=== PATIENT | female | born 1980 | race Caucasian/White ===

== ENCOUNTER 2017-10-18 16:27 | Emergency (ER) | payer MEDICAID, OTHER ==
--- NOTE | 2017-10-18 17:40 | EDM.PDOC ---
ED HPI GENERAL MEDICAL PROBLEM - General Chief Complaint: Skin Complaint Stated Complaint: RIGHT ARM POSS SPIDER BITE Time Seen by Provider: 10/18/17 17:40 Source of Information: Reports: Patient - History of Present Illness INITIAL COMMENTS - FREE TEXT/NARRATIVE: HISTORY AND PHYSICAL: History of present illness: [Patient presents with cellulitis on right anterior forearm 1 inch in diameter, she is an IV drug user, has multiple track sharpe. He did have an abscess on her posterior forearm that she drained on her own she has some exudates that are loculated at the opening there is no fluctuance or surrounding redness and tenderness approximately 1 inch in diameter, and wound cultures obtained at this No fever nausea vomiting chills sweats ] Review of systems: As per history of present illness and below otherwise all systems reviewed and negative. Past medical history: As per history of present illness and as reviewed below otherwise noncontributory. Surgical history: As per history of present illness and as reviewed below otherwise noncontributory. Social history: No reported history of drug or alcohol abuse. Family history: As per history of present illness and as reviewed below otherwise noncontributory. Physical exam: HEENT: Atraumatic, normocephalic, pupils reactive, negative for conjunctival pallor or scleral icterus, mucous membranes moist, throat clear, neck supple, nontender, trachea midline. Lungs: Clear to auscultation, breath sounds equal bilaterally, chest nontender. Heart: S1S2, regular, negative for clicks, rubs, or JVD. Abdomen: Soft, nondistended, nontender. Negative for masses or hepatosplenomegaly. Negative for costovertebral tenderness. Pelvis: Stable nontender. Genitourinary: Deferred. Rectal: Deferred. Extremities: Atraumatic, negative for cords or calf pain. Neurovascular unremarkable. Neuro: Awake, alert, oriented. Cranial nerves II through XII unremarkable. Cerebellum unremarkable. Motor and sensory unremarkable throughout. Exam nonfocal. Diagnostics: Culture] Therapeutics: [1 g Rocephin Bactrim double strength by mouth twice a day #20 no refill ] Impression: []Cellulitis right forearm anterior Abscess with drainage performed by the patient several days ago on the posterior forearm cellulitis surrounds post I&D Definitive disposition and diagnosis as appropriate pending reevaluation and review of above. ED ROS GENERAL - Review of Systems Review Of Systems: ROS reveals no pertinent complaints other than HPI. ED EXAM, SKIN/RASH Exam: See Below Course - Orders/Labs/Meds Orders: Active Orders 24 hr Category Date Time Status CULTURE WOUND [RM] Stat Lab 10/18/17 17:40 Ordered Departure - Departure Time of Disposition: 17:42 Disposition: Home, Self-Care 01 Condition: Good Clinical Impression: Cellulitis - Discharge Information Referrals: PCP,None [Primary Care Provider] - Forms: ED Department Discharge Additional Instructions: Medication as prescribed Return if symptoms persist or worsen Follow-up with primary care in 1 week Wound culture to follow [facility] [address] [place] [id number] The following information is given to patients seen in the emergency department who are being discharged to home. This information is to outline your options for follow-up care. We provide all patients seen in our emergency department with a follow-up referral. The need for follow-up, as well as the timing and circumstances, are variable depending upon the specifics of your emergency department visit. If you don't have a primary care physician on staff, we will provide you with a referral. We always advise you to contact your personal physician following an emergency department visit to inform them of the circumstance of the visit and for follow-up with them and/or the need for any referrals to a consulting specialist. The emergency department will also refer you to a specialist when appropriate. This referral assures that you have the opportunity for follow-up care with a specialist. All of these measure are taken in an effort to provide you with optimal care, which includes your follow-up. Under all circumstances we always encourage you to contact your private physician who remains a resource for coordinating your care. When calling for follow-up care, please make the office aware that this follow-up is from your recent emergency room visit. If for any reason you are refused follow-up, please contact the [facility] emergency department at and asked to speak to the emergency department charge nurse. - My Orders Last 24 Hours: My Active Orders 10/18/17 17:40 CULTURE WOUND [RM] Stat - Assessment/Plan Last 24 Hours: My Active Orders 10/18/17 17:40 CULTURE WOUND [RM] Stat
[2017-10-18] MEDS ORDERED: cefTRIAXone 1,000 MG in Lidocaine 1% 4 ML IM ONE (17:44)
== END 2017-10-18 18:11 | disposition home or self-care (01) ==
LOC: MW.ED 16:27
DX: L03.113 Cellulitis of right upper limb (principal)
CPT/HCPCS: 87070; 96372; 99283; J0696; 87077; 87186; 99282

== ENCOUNTER 2018-01-10 11:46 | Emergency (ER) | payer MEDICAID ==
[~2018-01-10 11:46] MED LIST: Naloxone 0.4 MG/ML Syringe IVPUSH ONE
[2018-01-10] MEDS ORDERED: Sodium Chloride 0.9% 10 ML Syringe FLUSH PRN (11:47)
[2018-01-10] MEDS ORDERED: Sodium Chloride 0.9% 2.5 ML Syringe FLUSH PRN (11:47)
--- NOTE | 2018-01-10 12:01 | EDM.PDOC ---
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 Review of systems: As per history of present illness and below otherwise all systems reviewed and negative. Past medical history: As per history of present illness and as reviewed below otherwise noncontributory. Surgical history: As per history of present illness and as reviewed below otherwise noncontributory. Social history: No reported history of drug or alcohol abuse. Family history: As per history of present illness and as reviewed below otherwise noncontributory. Physical exam: HEENT: Small areas of ecchymosis noted about her face these appear of variable age, normocephalic, pupils reactive, negative for conjunctival pallor or scleral icterus, mucous membranes moist, throat clear, c-collar applied , trachea midline. Lungs: Clear to auscultation, breath sounds equal bilaterally, chest nontender. Heart: S1S2, regular, negative for clicks, rubs, or JVD. Abdomen: Soft, nondistended, nontender. Negative for masses or hepatosplenomegaly. Negative for costovertebral tenderness. Pelvis: Stable nontender. Genitourinary: Deferred. Rectal: Deferred. Extremities: Track sharpe noted bilateral upper extremities, Neuro: Unresponsive intubated spontaneous movements Diagnostics: CBC CMP PT/INR troponin chest x-ray CT brain CT C-spine urine drug screen aspirin Tylenol level EtOH prolactin blood culture 2 hCG UA ABG Therapeutics: IV monitor mechanical ventilation Impression #1 altered mental status #2 ventilatory failure #3 probable substance abuse #4 hypoglycemic episode history of insulin dependent diabetes Definitive disposition and diagnosis as appropriate pending reevaluation and review of above. - Related Data Allergies Allergy/AdvReac Type Severity Reaction Status Date / Time clarithromycin [From Biaxin] Allergy Rash Verified 10/18/17 17:51 Home Meds: Home Meds Insulin Aspart [Novolog Flexpen] 7 units SQ ASDIRECTED 10/18/17 [History] Insulin Glarg,Human.Rec.Analog [Lantus] 50 units SQ BEDTIME 10/18/17 [History] Past Medical History - Past Health History Medical/Surgical History: Denies Medical/Surgical History Endocrine/Metabolic History: Reports: Diabetes, Type II - Infectious Disease History Infectious Disease History: Reports: Chicken Pox, Other (See Below) Other Infectious Disease History: MSSA Social & Family History - Family History Family Medical History: Noncontributory - Tobacco Use Smoking Status *Q: Unknown Ever Smoked ED ROS GENERAL - Review of Systems Review Of Systems: ROS reveals no pertinent complaints other than HPI. ED EXAM, GENERAL - Physical Exam Exam: See Below (The dictation) Course - Orders/Labs/Meds Orders: Active Orders 24 hr Category Date Time Status Cardiac Monitoring [RC] . DIRECTED Care 01/10/18 11:47 Active EKG Documentation Completion [RC] STAT Care 01/10/18 11:47 Active Pulse Oximetry [RC] ASDIRECTED Care 01/10/18 11:47 Active Cervical Spine wo Cont [CT] Stat Exams 01/10/18 11:48 Ordered Chest 1V Frontal [CR] Stat Exams 01/10/18 11:48 Ordered Head wo Cont [CT] Stat Exams 01/10/18 11:48 Ordered ACETAMINOPHEN [CHEM] Stat Lab 01/10/18 11:49 Ordered AMMONIA VENOUS [CHEM] Stat Lab 01/10/18 11:47 Ordered BLOOD GAS ARTERIAL [BG] Stat Lab 01/10/18 11:47 Ordered CARBOXYHEMOGLOBIN [BG] Stat Lab 01/10/18 11:48 Ordered CBC WITH AUTO DIFF [HEME] Stat Lab 01/10/18 11:47 Ordered COMPREHENSIVE METABOLIC PN,CMP [CHEM] Stat Lab 01/10/18 11:47 Ordered DRUG SCREEN, URINE [URCHEM] Stat Lab 01/10/18 11:48 Ordered ETHANOL BLOOD MEDICAL [CHEM] Stat Lab 01/10/18 11:47 Ordered HCG QUALITATIVE,SERUM [CHEM] Stat Lab 01/10/18 11:48 Ordered INR,PT,PROTHROMBIN TIME [COAG] Stat Lab 01/10/18 11:47 Ordered LACTATE WITH REFLEX [BG] Stat Lab 01/10/18 11:49 Ordered PROLACTIN [CHEM] Stat Lab 01/10/18 11:47 Ordered SALICYLATE [CHEM] Stat Lab 01/10/18 11:47 Ordered TROPONIN I [CHEM] Stat Lab 01/10/18 11:47 Ordered UA W/MICROSCOPIC [URIN] Stat Lab 01/10/18 11:48 Ordered Sodium Chloride 0.9% [Saline Flush] Med 01/10/18 11:47 Active 10 ml FLUSH ASDIRECTED PRN Sodium Chloride 0.9% [Saline Flush] Med 01/10/18 11:47 Active 2.5 ml FLUSH ASDIRECTED PRN Saline Lock Insert [OM.PC] Stat Oth 01/10/18 11:47 Ordered Medication Orders Sodium Chloride (Saline Flush) 10 ml FLUSH ASDIRECTED PRN PRN Reason: Keep Vein Open Sodium Chloride (Saline Flush) 2.5 ml FLUSH ASDIRECTED PRN PRN Reason: Keep Vein Open Meds: Medications Generic Name Dose Route Start Last Admin Trade Name Freq PRN Reason Stop Dose Admin Sodium Chloride 10 ml 01/10/18 11:47 Saline Flush FLUSH ASDIRECTED PRN Keep Vein Open Sodium Chloride 2.5 ml 01/10/18 11:47 Saline Flush FLUSH ASDIRECTED PRN Keep Vein Open Departure - Departure Time of Disposition: 12:01 Disposition: DC/Tfer to Acute Hospital 02 Condition: Critical Clinical Impression: Altered mental status, Respiratory arrest, Substance abuse, Hypoglycemia - Discharge Information - My Orders Last 24 Hours: My Active Orders 01/10/18 11:47 Cardiac Monitoring [RC] . DIRECTED EKG Documentation Completion [RC] STAT Pulse Oximetry [RC] ASDIRECTED AMMONIA VENOUS [CHEM] Stat BLOOD GAS ARTERIAL [BG] Stat CBC WITH AUTO DIFF [HEME] Stat COMPREHENSIVE METABOLIC PN,CMP [CHEM] Stat ETHANOL BLOOD MEDICAL [CHEM] Stat INR,PT,PROTHROMBIN TIME [COAG] Stat PROLACTIN [CHEM] Stat SALICYLATE [CHEM] Stat TROPONIN I [CHEM] Stat Sodium Chloride 0.9% [Saline Flush] 10 ml FLUSH ASDIRECTED PRN Sodium Chloride 0.9% [Saline Flush] 2.5 ml FLUSH ASDIRECTED PRN Saline Lock Insert [OM.PC] Stat 01/10/18 11:48 Cervical Spine wo Cont [CT] Stat Chest 1V Frontal [CR] Stat Head wo Cont [CT] Stat CARBOXYHEMOGLOBIN [BG] Stat DRUG SCREEN, URINE [URCHEM] Stat HCG QUALITATIVE,SERUM [CHEM] Stat UA W/MICROSCOPIC [URIN] Stat 01/10/18 11:49 ACETAMINOPHEN [CHEM] Stat LACTATE WITH REFLEX [BG] Stat - Assessment/Plan Last 24 Hours: My Active Orders 01/10/18 11:47 Cardiac Monitoring [RC] . DIRECTED EKG Documentation Completion [RC] STAT Pulse Oximetry [RC] ASDIRECTED AMMONIA VENOUS [CHEM] Stat BLOOD GAS ARTERIAL [BG] Stat CBC WITH AUTO DIFF [HEME] Stat COMPREHENSIVE METABOLIC PN,CMP [CHEM] Stat ETHANOL BLOOD MEDICAL [CHEM] Stat INR,PT,PROTHROMBIN TIME [COAG] Stat PROLACTIN [CHEM] Stat SALICYLATE [CHEM] Stat TROPONIN I [CHEM] Stat Sodium Chloride 0.9% [Saline Flush] 10 ml FLUSH ASDIRECTED PRN Sodium Chloride 0.9% [Saline Flush] 2.5 ml FLUSH ASDIRECTED PRN Saline Lock Insert [OM.PC] Stat 01/10/18 11:48 Cervical Spine wo Cont [CT] Stat Chest 1V Frontal [CR] Stat Head wo Cont [CT] Stat CARBOXYHEMOGLOBIN [BG] Stat DRUG SCREEN, URINE [URCHEM] Stat HCG QUALITATIVE,SERUM [CHEM] Stat UA W/MICROSCOPIC [URIN] Stat 01/10/18 11:49 ACETAMINOPHEN [CHEM] Stat LACTATE WITH REFLEX [BG] Stat
[2018-01-10] MEDS ORDERED: cefTRIAXone 1 GM in Premix Bag 1 BAG IV ONE (12:12)
--- NOTE | 2018-01-10 16:25 | CR ---
EXAM DATE: 01/10/18 PATIENT'S AGE: 37 Patient: PAN ESPINOZA Facility: [place], [place] Site . Site : [id number] Study: XRay Chest [id number] 12:21:41 PM Ordering Physician: Val Patel Final Report: INDICATION: PT FOUND UNRESPONSIVE TECHNIQUE: Chest 1 view COMPARISON: None FINDINGS: Cardiovascular and mediastinum: Heart size and vasculature are normal in caliber and appearance. Mediastinum is within normal limits. Lungs and pleural space: No focal consolidation. No sign of pleural effusion. No pneumothorax. Bones: No significant findings. Other: IMPRESSION: 1. no acute cardiopulmonary disease. 2. Feeding tube crossing the left hemidiaphragm looped within the gastric fundus. Dictated by Leif Villa MD @ 01/10/2018 12:38:00 PM Dictated by: Leif Villa MD @ 01/10/2018 12:38:08 (Electronic Signature) Report Signed by Proxy. LEANDRO
[2018-01-10] MEDS ORDERED: Sodium Chloride 0.9% 1,000 ML IV ONE (17:45)
== END 2018-01-10 12:35 ==
LOC: MW.ED 11:46
DX: E11.649 Type 2 diabetes mellitus with hypoglycemia without coma (principal); R09.2 Respiratory arrest; F19.10 Other psychoactive substance abuse, uncomplicated; Z88.1 Allergy status to other antibiotic agents; Z79.4 Long term (current) use of insulin
CPT/HCPCS: 36415; 36600; 43753; 71045; 80305; 81001; 82375; 82803; 83605; 93005; 94002; 96361; 96374; 99291; 99292; A9270; J0696; J7040; 99285

== ENCOUNTER 2018-01-27 04:42 | Observation (INO) | payer MEDICAID ==
[2018-01-27] MEDS ORDERED: Aspirin 81 MG Tab.Chew PO ONE (04:51)
[2018-01-27] MEDS ORDERED: Sodium Chloride 0.9% 2.5 ML Syringe FLUSH PRN (04:51)
[2018-01-27] MEDS ORDERED: Sodium Chloride 0.9% 10 ML Syringe FLUSH PRN (04:51)
[2018-01-27] MEDS ORDERED: Sodium Chloride 0.9% 1,000 ML IV SCH (05:00)
--- NOTE | 2018-01-27 05:21 | EDM.PDOC ---
ED HPI GENERAL MEDICAL PROBLEM - General Chief Complaint: Chest Pain Stated Complaint: CHEST PAINS Time Seen by Provider: 01/27/18 04:43 - History of Present Illness INITIAL COMMENTS - FREE TEXT/NARRATIVE: HISTORY AND PHYSICAL: History of present illness: Patient 37-year-old female presents concerned chest pain this is vaguely described without associated shortness breath palpitations nausea vomiting patient history his history of methamphetamine use she denies current. Patient is requesting pain medication on arrival Review of systems: As per history of present illness and below otherwise all systems reviewed and negative. Past medical history: As per history of present illness and as reviewed below otherwise noncontributory. Surgical history: As per history of present illness and as reviewed below otherwise noncontributory. Social history: No reported history of drug or alcohol abuse. Family history: As per history of present illness and as reviewed below otherwise noncontributory. Physical exam: HEENT: Atraumatic, normocephalic, pupils reactive, negative for conjunctival pallor or scleral icterus, mucous membranes moist, throat clear, neck supple, nontender, trachea midline. Lungs: Clear to auscultation, breath sounds equal bilaterally, chest nontender. Heart: S1S2, regular, negative for clicks, rubs, or JVD. Abdomen: Soft, nondistended, nontender. Negative for masses or hepatosplenomegaly. Negative for costovertebral tenderness. Pelvis: Stable nontender. Genitourinary: Deferred. Rectal: Deferred. Extremities: Atraumatic, negative for cords or calf pain. Neurovascular unremarkable. Neuro: Awake, alert, anxious, oriented. Cranial nerves II through XII unremarkable. Cerebellum unremarkable. Motor and sensory unremarkable throughout. Exam nonfocal. Diagnostics: CBC CMP troponin PT/INR chest x-ray EKG UDS Therapeutics: IV O2 monitor aspirin 324 mg by mouth Impression: 1 atypical chest pain #2 uncontrolled diabetes #3 history of substance abuse Definitive disposition and diagnosis as appropriate pending reevaluation and review of above. right side chest Pain Score (Numeric/FACES): 10 - Related Data Allergies Allergy/AdvReac Type Severity Reaction Status Date / Time clarithromycin [From Biaxin] Allergy Rash Verified 01/27/18 04:51 Home Meds: Home Meds Insulin Aspart [Novolog Flexpen] 7 units SQ ASDIRECTED 10/18/17 [History] Insulin Glarg,Human.Rec.Analog [Lantus] 50 units SQ BEDTIME 10/18/17 [History] Past Medical History - Past Health History Medical/Surgical History: Denies Medical/Surgical History HEENT History: Reports: None Cardiovascular History: Reports: Other (See Below) Other Cardiovascular History: CHF Respiratory History: Reports: None Gastrointestinal History: Reports: None Genitourinary History: Reports: None 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 Musculoskeletal History: Reports: None Neurological History: Reports: None Psychiatric History: Reports: None Endocrine/Metabolic History: Reports: Diabetes, Type II - Infectious Disease History Infectious Disease History: Reports: Chicken Pox Other Infectious Disease History: MSSA - Past Surgical History Female Surgical History: Reports: None Social & Family History - Family History Family Medical History: Noncontributory - Tobacco Use Smoking Status *Q: Current Every Day Smoker Years of Tobacco use: 16 Packs/Tins Daily: 1 - Recreational Drug Use Recreational Drug Use: No ED ROS GENERAL - Review of Systems Review Of Systems: ROS reveals no pertinent complaints other than HPI. ED EXAM, GENERAL - Physical Exam Exam: See Below (See dictation) Course - Vital Signs Last Recorded V/S: Last Vital Signs Temp 37.1 C 01/27/18 04:43 Pulse 97 01/27/18 05:48 Resp 18 01/27/18 05:48 BP 116/68 01/27/18 05:48 Pulse Ox 97 01/27/18 05:48 - Orders/Labs/Meds Orders: Active Orders 24 hr Category Date Time Status Cardiac Monitoring [RC] . DIRECTED Care 01/27/18 04:51 Active EKG Documentation Completion [RC] STAT Care 01/27/18 04:50 Active Chest 1V Frontal [CR] Stat Exams 01/27/18 04:51 Taken ABG [BLOOD GAS ARTERIAL] [BG] Stat Lab 01/27/18 06:02 Ordered DRUG SCREEN, URINE [URCHEM] Stat Lab 01/27/18 04:51 Ordered UA W/MICROSCOPIC [URIN] Stat Lab 01/27/18 04:51 Ordered Sodium Chloride 0.9% [Normal Saline] 1,000 ml Med 01/27/18 05:00 Active IV STAT Sodium Chloride 0.9% [Saline Flush] Med 01/27/18 04:51 Active 10 ml FLUSH ASDIRECTED PRN Sodium Chloride 0.9% [Saline Flush] Med 01/27/18 04:51 Active 2.5 ml FLUSH ASDIRECTED PRN Saline Lock Insert [OM.PC] Stat Oth 01/27/18 04:51 Ordered Medication Orders Sodium Chloride (Normal Saline) 1,000 mls @ 125 mls/hr IV STAT SIGIFREDO Last Infusion: 01/27/18 06:03 Dose: 999 mls/hr Admin: 01/27/18 05:01 Dose: 125 mls/hr Sodium Chloride (Saline Flush) 10 ml FLUSH ASDIRECTED PRN PRN Reason: Keep Vein Open Sodium Chloride (Saline Flush) 2.5 ml FLUSH ASDIRECTED PRN PRN Reason: Keep Vein Open Labs: Laboratory Tests 01/27/18 01/27/18 01/27/18 Range/Units 05:12 05:12 05:12 WBC 10.13 (4.0-11.0) K/uL RBC 3.93 L (4.30-5.90) M/uL Hgb 12.1 (12.0-16.0) g/dL Hct 37.5 (36.0-46.0) % MCV 95.4 (80.0-98.0) fL MCH 30.8 (27.0-32.0) pg MCHC 32.3 (31.0-37.0) g/dL RDW Std Deviation 44.0 (28.0-62.0) fl RDW Coeff of Leon 13 (11.0-15.0) % Plt Count 321 (150-400) K/uL MPV 10.30 (7.40-12.00) fL Neut % (Auto) 70.2 (48.0-80.0) % Lymph % (Auto) 20.1 (16.0-40.0) % Garden % (Auto) 8.9 (0.0-15.0) % Eos % (Auto) 0.6 (0.0-7.0) % Baso % (Auto) 0.2 (0.0-1.5) % Neut # (Auto) 7.1 H (1.4-5.7) K/uL Lymph # (Auto) 2.0 (0.6-2.4) K/uL Garden # (Auto) 0.9 H (0.0-0.8) K/uL Eos # (Auto) 0.1 (0.0-0.7) K/uL Baso # (Auto) 0.0 (0.0-0.1) K/uL Nucleated RBC % 0.0 /100WBC Nucleated RBCs # 0 K/uL INR 0.97 Sodium 128 L (136-145) mmol/L Potassium 4.3 (3.5-5.1) mmol/L Chloride 94 L (98-107) mmol/L Carbon Dioxide 21.2 (21.0-32.0) mmol/L BUN 14 (7.0-18.0) mg/dL Creatinine 1.0 (0.6-1.0) mg/dL Est Cr Clr Drug Dosing 71.41 mL/min Estimated GFR (MDRD) > 60.0 ml/min Glucose 726 H* (74-106) mg/dL Calcium 8.7 (8.5-10.1) mg/dL Total Bilirubin 0.4 (0.2-1.0) mg/dL AST 74 H (15-37) IU/L ALT 67 H (14-63) IU/L Alkaline Phosphatase 139 H (46-116) U/L Troponin I < 0.050 (0.000-0.056) ng/mL Total Protein 7.2 (6.4-8.2) g/dL Albumin 3.4 (3.4-5.0) g/dL Globulin 3.8 H (2.0-3.5) g/dL Albumin/Globulin Ratio 0.9 L (1.3-2.8) Meds: Medications Generic Name Dose Route Start Last Admin Trade Name Freq PRN Reason Stop Dose Admin Sodium Chloride 1,000 mls @ 125 mls/hr 01/27/18 05:00 01/27/18 06:03 Normal Saline IV 999 mls/hr STAT SIGIFREDO Infusion Sodium Chloride 10 ml 01/27/18 04:51 Saline Flush FLUSH ASDIRECTED PRN Keep Vein Open Sodium Chloride 2.5 ml 01/27/18 04:51 Saline Flush FLUSH ASDIRECTED PRN Keep Vein Open Discontinued Medications Generic Name Dose Route Start Last Admin Trade Name Freq PRN Reason Stop Dose Admin Aspirin 324 mg 01/27/18 04:51 01/27/18 05:02 Aspirin PO 01/27/18 04:52 324 mg ONETIME ONE Administration Insulin Human Regular 100 unit 100 mls @ 6 mls/hr 01/27/18 06:15 / Sodium Chloride IV TITRATE SIGIFREDO Protocol 6 UNIT/HR Insulin Human Regular 20 unit 01/27/18 06:14 Novolin R SUBCUT 01/27/18 06:15 NOW STA Protocol Insulin Human Regular 10 unit 01/27/18 06:15 Novolin R IVPUSH 01/27/18 06:16 ONETIME ONE Protocol Departure - Departure Time of Disposition: 05:20 Disposition: Refer to Observation Condition: Good Clinical Impression: Atypical chest pain, Uncontrolled diabetes mellitus - Discharge Information Referrals: PCP,None [Primary Care Provider] - Forms: ED Department Discharge Additional Instructions: The following information is given to patients seen in the emergency department who are being discharged to home. This information is to outline your options for follow-up care. We provide all patients seen in our emergency department with a follow-up referral. The need for follow-up, as well as the timing and circumstances, are variable depending upon the specifics of your emergency department visit. If you don't have a primary care physician on staff, we will provide you with a referral. We always advise you to contact your personal physician following an emergency department visit to inform them of the circumstance of the visit and for follow-up with them and/or the need for any referrals to a consulting specialist. The emergency department will also refer you to a specialist when appropriate. This referral assures that you have the opportunity for followup care with a specialist. All of these measure are taken in an effort to provide you with optimal care, which includes your followup. Under all circumstances we always encourage you to contact your private physician who remains a resource for coordinating your care. When calling for followup care, please make the office aware that this follow-up is from your recent emergency room visit. If for any reason you are refused follow-up, please contact the [facility] emergency department at and asked to speak to the emergency department charge nurse. [facility] [address] [place] [phone] Follow-up primary medical doctor return as needed as discussed - My Orders Last 24 Hours: My Active Orders 01/27/18 04:50 EKG Documentation Completion [RC] STAT 01/27/18 04:51 Cardiac Monitoring [RC] . DIRECTED Chest 1V Frontal [CR] Stat DRUG SCREEN, URINE [URCHEM] Stat UA W/MICROSCOPIC [URIN] Stat Sodium Chloride 0.9% [Saline Flush] 10 ml FLUSH ASDIRECTED PRN Sodium Chloride 0.9% [Saline Flush] 2.5 ml FLUSH ASDIRECTED PRN Saline Lock Insert [OM.PC] Stat 01/27/18 05:00 Sodium Chloride 0.9% [Normal Saline] 1,000 ml IV STAT 01/27/18 06:02 ABG [BLOOD GAS ARTERIAL] [BG] Stat - Assessment/Plan Last 24 Hours: My Active Orders 01/27/18 04:50 EKG Documentation Completion [RC] STAT 01/27/18 04:51 Cardiac Monitoring [RC] . DIRECTED Chest 1V Frontal [CR] Stat DRUG SCREEN, URINE [URCHEM] Stat UA W/MICROSCOPIC [URIN] Stat Sodium Chloride 0.9% [Saline Flush] 10 ml FLUSH ASDIRECTED PRN Sodium Chloride 0.9% [Saline Flush] 2.5 ml FLUSH ASDIRECTED PRN Saline Lock Insert [OM.PC] Stat 01/27/18 05:00 Sodium Chloride 0.9% [Normal Saline] 1,000 ml IV STAT 01/27/18 06:02 ABG [BLOOD GAS ARTERIAL] [BG] Stat
[2018-01-27 05:40] LABS: CHLORIDE,CL 94 mmol/L (98-107); SODIUM,NA 128 mmol/L (136-145)
[2018-01-27] MEDS ORDERED: Insulin Regular, Human 100 Units/ML 10 ML Vial SUBCUT STA (06:14)
[2018-01-27] MEDS ORDERED: Insulin Regular, Human 100 Units/ML 10 ML Vial IVPUSH ONE (06:15)
[2018-01-27] MEDS ORDERED: Ondansetron 4 MG/2 ML SDV IVPUSH PRN (08:10)
[2018-01-27] MEDS ORDERED: Promethazine 25 MG/ML SDV IM PRN (08:10)
[2018-01-27] MEDS: Morphine 2 MG/ML Syringe IVPUSH PRN ×4 (08:26→20:58)
--- NOTE | 2018-01-27 08:36 | PCM.HP ---
H&P History of Present Illness - General Date of Service: 01/27/18 Admit Problem/Dx: Admission Diagnosis/Problem Admission Diagnosis/Problem Atypical chest pain Source of Information: Patient History Limitations: Reports: No Limitations - History of Present Illness Initial Comments - Free Text/Narative: 37F with a past hx of T1DM presented to the ER earlier this morning with a CC of generalized chest/back/abdominal pain that began last night. She states that it began abruptly, and has been progressively getting worse. It is more so on the right side. No relieving factors She states that she has been taking her insulin regularly. She does have a history of methamphetamine use but denies recent use. Denies any recent alcohol intake. Currently, shes started to feel like the pain is all over. Also complains of nonbloody watery diarrhea. She denies any nausea, vomiting, fever, chills, numbness or tingling ER Course: CBC CMP - Na 128, glucose 726, K 4.3, AST 74 ALT 67 Troponin negative EKG nsr ABG: pH 7.4, CO2 28, HCO3 21, O2 106 CXR unremarkable IV 1L NS bolus x1, started on NS 125mL/h 325mg PO aspirin 30 units regular insulin Recheck bedside glucose now on the floor is 270 right side chest Pain Score (Numeric/FACES): 10 - Related Data Allergies/Adverse Reactions: Allergies Allergy/AdvReac Type Severity Reaction Status Date / Time clarithromycin [From Biaxin] Allergy Rash Verified 01/27/18 04:51 Home Medications: Home Meds Insulin Aspart [Novolog Flexpen] 7 units SQ ASDIRECTED 10/18/17 [History] Insulin Glarg,Human.Rec.Analog [Lantus] 50 units SQ BEDTIME 10/18/17 [History] Past Medical History - Past Health History Medical/Surgical History: Denies Medical/Surgical History HEENT History: Reports: None Cardiovascular History: Reports: Other (See Below) Other Cardiovascular History: CHF Respiratory History: Reports: None Gastrointestinal History: Reports: None Genitourinary History: Reports: None WHOLESALE AGRONOMIST History: Reports: None Musculoskeletal History: Reports: None Neurological History: Reports: None Psychiatric History: Reports: None Endocrine/Metabolic History: Reports: Diabetes, Type I - Infectious Disease History Infectious Disease History: Reports: Chicken Pox Other Infectious Disease History: MSSA - Past Surgical History Female Surgical History: Reports: None Social & Family History - Family History Family Medical History: Noncontributory - Tobacco Use Smoking Status *Q: Current Every Day Smoker Years of Tobacco use: 16 Packs/Tins Daily: 0.5 - Caffeine Use Caffeine Use: Reports: None - Recreational Drug Use Recreational Drug Use: No H&P Review of Systems - Review of Systems: Review Of Systems: See Below General: Reports: Other (see hpi) HEENT: Reports: No Symptoms Pulmonary: Reports: Cough (nonproductive) Cardiovascular: Reports: Chest Pain Gastrointestinal: Reports: Abdominal Pain Genitourinary: Reports: No Symptoms Musculoskeletal: Reports: Back Pain Skin: Reports: No Symptoms Psychiatric: Reports: No Symptoms Neurological: Reports: No Symptoms Hematologic/Lymphatic: Reports: No Symptoms Immunologic: Reports: No Symptoms Exam - Exam Exam: See Below - Vital Signs Vital Signs: Last Vital Signs Temp 37.1 C 01/27/18 07:43 Pulse 95 01/27/18 07:43 Resp 20 01/27/18 07:43 BP 137/85 01/27/18 07:43 Pulse Ox 99 01/27/18 07:43 Weight: 75.795 kg - Exam General: Alert, Oriented, Cooperative HEENT: PERRLA, Hearing Intact, Mucosa Moist & [place], Nares Patent, Normal Nasal Septum, Posterior Pharynx Clear, Conjunctiva Clear, EOMI, EACs Clear, TMs Clear Neck: Supple, Trachea Midline, 2 Lungs: Clear to Auscultation, Normal Respiratory Effort Cardiovascular: Regular Rate, Regular Rhythm GI/Abdominal Exam: Other (tender to mild palpation in all quadrants, abdomen is soft with no masses, ascites) Back Exam: Normal Inspection, Full Range of Motion. No: CVA Tenderness (L), CVA Tenderness (R) Extremities: Normal Inspection, Normal Range of Motion, Non-Tender, No Pedal Edema, Normal Capillary Refill Peripheral Pulses: 2+: Posterior Tibial (L), Posterior Tibial (R), Dorsalis Pedis (L), Dorsalis Pedis (R) Skin: Warm, Dry, Intact Neuro Extensive - Mental Status: Alert, Oriented x3, Normal Mood/Affect, Normal Cognition Neuro Extensive - Motor, Sensory, Reflexes: CN II-XII Intact, Normal Reflexes Psychiatric: Alert, Normal Mood, Anxious - Patient Data Lab Results Last 24 hrs: Laboratory Results - last 24 hr 06/08/18 06/08/18 06/08/18 Range/Units 05:12 05:12 05:12 WBC 10.13 (4.0-11.0) K/uL RBC 3.93 L (4.30-5.90) M/uL Hgb 12.1 (12.0-16.0) g/dL Hct 37.5 (36.0-46.0) % MCV 95.4 (80.0-98.0) fL MCH 30.8 (27.0-32.0) pg MCHC 32.3 (31.0-37.0) g/dL RDW Std Deviation 44.0 (28.0-62.0) fl RDW Coeff of Loen 13 (11.0-15.0) % Plt Count 321 (150-400) K/uL MPV 10.30 (7.40-12.00) fL Neut % (Auto) 70.2 (48.0-80.0) % Lymph % (Auto) 20.1 (16.0-40.0) % Slope % (Auto) 8.9 (0.0-15.0) % Eos % (Auto) 0.6 (0.0-7.0) % Baso % (Auto) 0.2 (0.0-1.5) % Neut # (Auto) 7.1 H (1.4-5.7) K/uL Lymph # (Auto) 2.0 (0.6-2.4) K/uL Slope # (Auto) 0.9 H (0.0-0.8) K/uL Eos # (Auto) 0.1 (0.0-0.7) K/uL Baso # (Auto) 0.0 (0.0-0.1) K/uL Nucleated RBC % 0.0 /100WBC Nucleated RBCs # 0 K/uL INR 0.97 ABG pH (7.35-7.45) ABG pCO2 (35-45) mmHG ABG pO2 (75-100) mmHG ABG HCO3 (22-26) mEq/L ABG Total CO2 ABG Base Excess (-2.0-2.0) Sodium 128 L (136-145) mmol/L Potassium 4.3 (3.5-5.1) mmol/L Chloride 94 L (98-107) mmol/L Carbon Dioxide 21.2 (21.0-32.0) mmol/L BUN 14 (7.0-18.0) mg/dL Creatinine 1.0 (0.6-1.0) mg/dL Est Cr Clr Drug Dosing 71.41 mL/min Estimated GFR (MDRD) > 60.0 ml/min Glucose 726 H* (74-106) mg/dL POC Glucose (60-110) mg/dL Calcium 8.7 (8.5-10.1) mg/dL Total Bilirubin 0.4 (0.2-1.0) mg/dL AST 74 H (15-37) IU/L ALT 67 H (14-63) IU/L Alkaline Phosphatase 139 H (46-116) U/L Troponin I < 0.050 (0.000-0.056) ng/mL Total Protein 7.2 (6.4-8.2) g/dL Albumin 3.4 (3.4-5.0) g/dL Globulin 3.8 H (2.0-3.5) g/dL Albumin/Globulin Ratio 0.9 L (1.3-2.8) 01/27/18 01/27/18 Range/Units 06:15 07:24 WBC (4.0-11.0) K/uL RBC (4.30-5.90) M/uL Hgb (12.0-16.0) g/dL Hct (36.0-46.0) % MCV (80.0-98.0) fL MCH (27.0-32.0) pg MCHC (31.0-37.0) g/dL RDW Std Deviation (28.0-62.0) fl RDW Coeff of Leon (11.0-15.0) % Plt Count (150-400) K/uL MPV (7.40-12.00) fL Neut % (Auto) (48.0-80.0) % Lymph % (Auto) (16.0-40.0) % Slope % (Auto) (0.0-15.0) % Eos % (Auto) (0.0-7.0) % Baso % (Auto) (0.0-1.5) % Neut # (Auto) (1.4-5.7) K/uL Lymph # (Auto) (0.6-2.4) K/uL Slope # (Auto) (0.0-0.8) K/uL Eos # (Auto) (0.0-0.7) K/uL Baso # (Auto) (0.0-0.1) K/uL Nucleated RBC % /100WBC Nucleated RBCs # K/uL INR ABG pH 7.475 H (7.35-7.45) ABG pCO2 28 L (35-45) mmHG ABG pO2 106 H (75-100) mmHG ABG HCO3 21 L (22-26) mEq/L ABG Total CO2 18.6 ABG Base Excess -1.9 (-2.0-2.0) Sodium (136-145) mmol/L Potassium (3.5-5.1) mmol/L Chloride (98-107) mmol/L Carbon Dioxide (21.0-32.0) mmol/L BUN (7.0-18.0) mg/dL Creatinine (0.6-1.0) mg/dL Est Cr Clr Drug Dosing mL/min Estimated GFR (MDRD) ml/min Glucose (74-106) mg/dL POC Glucose > 500 H (60-110) mg/dL Calcium (8.5-10.1) mg/dL Total Bilirubin (0.2-1.0) mg/dL AST (15-37) IU/L ALT (14-63) IU/L Alkaline Phosphatase (46-116) U/L Troponin I (0.000-0.056) ng/mL Total Protein (6.4-8.2) g/dL Albumin (3.4-5.0) g/dL Globulin (2.0-3.5) g/dL Albumin/Globulin Ratio (1.3-2.8) Result Diagrams: 01/27/18 05:12 01/27/18 05:12 Problem List Initiated/Reviewed/Updated: Yes Orders Last 24hrs: Active Orders 24 hr Category Date Time Status Patient Status [ADT] Stat ADT 01/27/18 06:20 Active Blood Glucose Check, Bedside [RC] ONETIME Care 01/27/18 08:13 Active Cardiac Monitoring [RC] . DIRECTED Care 01/27/18 04:51 Active EKG Documentation Completion [RC] STAT Care 01/27/18 04:50 Active Oxygen Therapy [RC] PRN Care 01/27/18 08:10 Active Telemetry Monitoring [Cardiac Monitoring] [RC] . Care 01/27/18 08:27 Ordered DIRECTED Up ad Milana [RC] ASDIRECTED Care 01/27/18 08:10 Active VTE/DVT Education [RC] PER UNIT ROUTINE Care 01/27/18 08:10 Active Vital Signs [RC] Q4H Care 01/27/18 08:10 Active Consult to Diabetic Nurse Specialist [CONS] Routine Cons 01/27/18 08:10 Active Nothing per Oral Now Diet [DIET] Diet 01/27/18 Lunch Active Chest 1V Frontal [CR] Stat Exams 01/27/18 04:51 Taken BASIC METABOLIC PANEL,BMP [CHEM] Routine Lab 01/27/18 12:00 Ordered DRUG SCREEN, URINE [URCHEM] Stat Lab 01/27/18 04:51 Ordered UA W/MICROSCOPIC [URIN] Stat Lab 01/27/18 04:51 Ordered Insulin Aspart [NovoLOG] Med 01/27/18 11:30 Active See Protocol SUBCUT TIDAC Morphine Med 01/27/18 08:10 Active 2 mg IVPUSH Q4H PRN Ondansetron [Zofran] Med 01/27/18 08:10 Active 4 mg IVPUSH Q4H PRN Promethazine [Phenergan] Med 01/27/18 08:10 Active 12.5 mg IM Q4H PRN Sodium Chloride 0.9% [Normal Saline] 1,000 ml Med 01/27/18 05:00 Active IV STAT Sodium Chloride 0.9% [Saline Flush] Med 01/27/18 04:51 Active 10 ml FLUSH ASDIRECTED PRN Sodium Chloride 0.9% [Saline Flush] Med 01/27/18 04:51 Active 2.5 ml FLUSH ASDIRECTED PRN Saline Lock Insert [OM.PC] Stat Oth 01/27/18 04:51 Ordered Sequential Compression Device [OM.PC] Per Unit Routine Oth 01/27/18 08:11 Ordered Resuscitation Status Routine Resus Stat 01/27/18 08:10 Ordered Medication Orders Sodium Chloride (Normal Saline) 1,000 mls @ 175 mls/hr IV STAT SIGIFREDO Last Infusion: 01/27/18 06:03 Dose: 999 mls/hr Admin: 01/27/18 05:01 Dose: 125 mls/hr Insulin Aspart (Novolog) 0 unit SUBCUT TIDAC SIGIFREDO; Protocol Morphine Sulfate (Morphine) 2 mg IVPUSH Q4H PRN PRN Reason: Pain (severe 7-10) Stop: 01/28/18 08:11 Ondansetron HCl (Zofran) 4 mg IVPUSH Q4H PRN PRN Reason: Nausea Promethazine HCl (Phenergan) 12.5 mg IM Q4H PRN PRN Reason: Nausea/Vomiting Sodium Chloride (Saline Flush) 10 ml FLUSH ASDIRECTED PRN PRN Reason: Keep Vein Open Sodium Chloride (Saline Flush) 2.5 ml FLUSH ASDIRECTED PRN PRN Reason: Keep Vein Open Assessment/Plan Comment:: Assessment: #1. Hyperglycemia #2. Pseudohyponatremia #3. Generalized pain involving the chest, abdomen, back #4. Watery diarrhea #5. History of T1DM Plan: #1. Admit to the floor for observation. Full code. Cardiac telemetry. Vital signs per floor routine #2. Her corrected sodium is 134 given her significant hyperglycemia. #3. Bedside glucose recheck indicates a glucose of 270. Therefore, will initiate medium dose sliding scale insulin, will not be needing an insulin drip #4. Repeat BMP at noon #5. Increase IVNS to 175mL/h #6. Morphine 2mg IV q4h PRN, pain. She does have a history of methamphetamine use. Drug screen is pending #7. F/u on UA once available #8. Stool culture for diarrhea complaint #9. Zofran 4mg IV q4h PRN, nausea. promethazine 12.5mg IV q4h PRN for nausea #10. Consult diabetic education #11. Anion gap is 6. She is awake, alert, and oriented. #12. D-dimer #13. CIWA protocol with PRN Ativan as I suspect possible alcohol use given her history #14. q6h blood glucose check #15. amylase/lipase #16. GI Cocktail
[2018-01-27] MEDS: Sodium Chloride 0.9% 1,000 ML IV SCH ×3 (09:26→18:29)
[2018-01-27] MEDS ORDERED: Alum Hydrox/Mag Hydrox/Simeth 15 ML, Metoclopramide 5 MG, Lidocaine 2% 5 ML PO ONE ×3 (09:27)
[2018-01-27] MEDS ORDERED: LORazepam 2 MG/ML SDV IVPUSH PRN (09:28)
[2018-01-27] MEDS ORDERED: Sodium Chloride 0.9% 1,000 ML IV ONE (09:29)
[2018-01-27] MEDS: Pantoprazole 40 MG Vial IVPUSH SCH (10:13)
[2018-01-27] MEDS: Thiamine 200 MG/2 ML MDV IV SCH (10:13)
[2018-01-27] MEDS: Folic Acid 50 MG/10 ML MDV SUBCUT SCH (10:14)
[2018-01-27] MEDS ORDERED: 50% Dextrose in Water 50 ML Syringe IVPUSH ONE (11:11)
[2018-01-27] MEDS ORDERED: Insulin Aspart 100 Units/ML 3 ML Pen SUBCUT SCH (11:30)
--- NOTE | 2018-01-27 11:43 | PCM.SN ---
- Free Text/Narrative Note: Patient was found to be unresponsive, bedside glucose 25, an amp of d50 was given. Recheck glucose 138. Patient is now responsive, complaining of ongoing pain as prior.
[2018-01-27] MEDS: Insulin Aspart 100 Units/ML 3 ML Pen SUBCUT SCH ×2 (12:45→18:01)
[2018-01-27 12:55] LABS: CHLORIDE,CL 105 mmol/L (98-107); SODIUM,NA 139 mmol/L (136-145)
--- NOTE | 2018-01-27 13:01 | PCM.SN ---
- Free Text/Narrative Note: Anesthesia Note: Called for difficult IV placement. Initial attempt with 20 Ga to R upper arm - vein blew after threading catheter; 2nd attempt with 22 Ga again to R UA and this time threaded easily, but blew upon flushing; 3rd attempt 20 GA to R deep brachial - again blew upon flushing. Finally superficial vein to L outer AC cannulated with 24 ga IV and flushes well. Plan to get pt hydrated and attempt and larger bore IV after hydration. Pt moaning and screaming in pain even when no painful event occurring. Pt does have multiple scars all over her arms consistent with IV drug abuse. Pt verbalizes that she "had to have IVs in her neck" in the past.
[2018-01-27] MEDS: cefTRIAXone 1 GM in Premix Bag 1 BAG IV SCH (13:07)
--- NOTE | 2018-01-27 15:20 | CR ---
EXAM DATE: 01/27/18 PATIENT'S AGE: 37 Patient: PAN ESPINOZA Facility: [place], [place] Site . Site : 1980 Study: XRay Chest [id number]/8/2018 5:28:14 AM Ordering Physician: Val Patel Final Report: Indication: Chest pain Technique: Chest 1 view Comparison: 01/10/2018. Findings/Impression: Cardiovascular and mediastinum: Stable cardiomediastinal silhouette. Lungs and pleural space: Expiratory study. Interval resolution of the previously seen left basilar pleural and parenchymal disease. No new consolidation or pleural effusions. Bones and soft tissues: A small density in the left axilla, not seen on the prior, possibly overlying the patient. Dictated by Franklyn Jaquez MD @ 01/27/2018 6:24:40 AM Dictated by: Franklyn Jaquez MD @ 01/27/2018 06:24:46 (Electronic Signature) Report Signed by Proxy. LEANDRO
[2018-01-28] MEDS: Morphine 2 MG/ML Syringe IVPUSH PRN (04:31)
[2018-01-28] MEDS: Insulin Aspart 100 Units/ML 3 ML Pen SUBCUT SCH ×2 (07:01→12:10)
[2018-01-28] MEDS ORDERED: Insulin Aspart 100 Units/ML 3 ML Pen SUBCUT ONE (07:01)
[2018-01-28] MEDS ORDERED: Morphine 2 MG/ML Syringe IVPUSH ONE (09:06)
[2018-01-28] MEDS: Folic Acid 50 MG/10 ML MDV SUBCUT SCH (09:21)
[2018-01-28] MEDS: Pantoprazole 40 MG Vial IVPUSH SCH (09:22)
[2018-01-28] MEDS: Thiamine 200 MG/2 ML MDV IV SCH (09:22)
--- NOTE | 2018-01-28 11:12 | PCM.DCSUM1 ---
Discharge Summary - Discharge Data Discharge Date: 01/28/18 Discharge Disposition: Home, Self-Care 01 Condition: Good - Patient Summary/Data Consults: Consultations 01/27/18 08:10 Consult to Diabetic Nurse Specialist [CONS] Routine Hospital Course: 37 yo female with pmh of meth abuse and poorly controlled diabetes who presented with one day chest wall and back pain. Her glucose was found to be 786. Patient reported not taking her insulin the day of and before admission. Work up for her chest pain was negative including, troponins, EKG, and CT scan of chest. During her stay she would become tearful and refuse laboratory draws and CT scans stating the pain was to severe and only agreeing to testing if she received pain medications. She would also go from not moving her arms because of the pain to moving her arms dynamically while talking. She was treated with IV fluids and her insulin was resumed. Patient was discharged home to follow up with [facility]. - Patient Instructions Diet: Diabetic Diet - Discharge Plan Prescriptions/Med Rec: Cephalexin [Keflex] 500 mg PO Q12H #8 cap Home Medications: Home Meds Insulin Aspart [Novolog Flexpen] 7 units SQ ASDIRECTED 10/18/17 [History] Gabapentin [Neurontin] 300 mg PO TID 01/27/18 [History] Insulin Detemir [Levemir] 45 unit SUBCUT DAILY 01/27/18 [History] Cephalexin [Keflex] 500 mg PO Q12H #8 cap 01/28/18 [Rx] Patient Handouts: Type 1 Diabetes Mellitus, Self Care, Adult, Nonspecific Chest Pain, [id number] Referrals: Dwight Parker [Resident] - 02/03/18 9:30 am - Patient Data Vitals - Most Recent: Last Vital Signs Temp 36.9 C 01/28/18 08:00 Pulse 107 H 01/28/18 08:00 Resp 18 01/28/18 08:00 BP 105/69 01/28/18 08:00 Pulse Ox 107 H 01/28/18 08:00 Weight - Most Recent: 75.795 kg I&O - Last 24 hours: Intake & Output 01/27/18 01/28/18 01/28/18 22:59 06:59 14:59 Intake Total 3210 Output Total 4800 Balance -1590 Lab Results - Last 24 hrs: Laboratory Results - last 24 hr 01/27/18 01/27/18 01/27/18 Range/Units 08:32 11:10 11:35 D-Dimer, Quantitative (0.0-0.52) mg/LFEU Sodium (136-145) mmol/L Potassium (3.5-5.1) mmol/L Chloride (98-107) mmol/L Carbon Dioxide (21.0-32.0) mmol/L BUN (7.0-18.0) mg/dL Creatinine (0.6-1.0) mg/dL Est Cr Clr Drug Dosing mL/min Estimated GFR (MDRD) ml/min Glucose (74-106) mg/dL POC Glucose 272 H 25 L 138 H (60-110) mg/dL Calcium (8.5-10.1) mg/dL Troponin I (0.000-0.056) ng/mL 01/27/18 01/27/18 01/27/18 Range/Units 12:15 12:15 12:25 D-Dimer, Quantitative 0.30 (0.0-0.52) mg/LFEU Sodium 139 (136-145) mmol/L Potassium 4.0 (3.5-5.1) mmol/L Chloride 105 (98-107) mmol/L Carbon Dioxide 25.6 (21.0-32.0) mmol/L BUN 10 (7.0-18.0) mg/dL Creatinine 0.7 (0.6-1.0) mg/dL Est Cr Clr Drug Dosing 102.01 mL/min Estimated GFR (MDRD) > 60.0 ml/min Glucose 91 (74-106) mg/dL POC Glucose (60-110) mg/dL Calcium 8.5 (8.5-10.1) mg/dL Troponin I < 0.050 (0.000-0.056) ng/mL 01/27/18 01/27/18 01/28/18 Range/Units 17:16 17:28 06:16 D-Dimer, Quantitative (0.0-0.52) mg/LFEU Sodium (136-145) mmol/L Potassium (3.5-5.1) mmol/L Chloride (98-107) mmol/L Carbon Dioxide (21.0-32.0) mmol/L BUN (7.0-18.0) mg/dL Creatinine (0.6-1.0) mg/dL Est Cr Clr Drug Dosing mL/min Estimated GFR (MDRD) ml/min Glucose (74-106) mg/dL POC Glucose 198 H 434 H (60-110) mg/dL Calcium (8.5-10.1) mg/dL Troponin I < 0.050 (0.000-0.056) ng/mL Med Orders - Current: Current Medications Folic Acid (Folic Acid) 1 mg SUBCUT DAILY [facility] Last Admin: 01/28/18 09:21 Dose: 1 mg Ceftriaxone Sodium/Dextrose 1 (gm/ Premix) 50 mls @ 100 mls/hr IV Q24H [facility] Last Admin: 01/27/18 13:07 Dose: 100 mls/hr Insulin Aspart (Novolog) 0 unit SUBCUT TIDAC [facility]; Protocol Last Admin: 01/28/18 07:01 Dose: Not Given Lorazepam (Ativan) 0 mg IVPUSH Q4H PRN; Protocol PRN Reason: CIWAA assessment Last Admin: 01/27/18 22:29 Dose: 1 mg Ondansetron HCl (Zofran) 4 mg IVPUSH Q4H PRN PRN Reason: Nausea Pantoprazole Sodium (Protonix Iv) 40 mg IVPUSH DAILY [facility] Last Admin: 01/28/18 09:22 Dose: 40 mg Promethazine HCl (Phenergan) 12.5 mg IM Q4H PRN PRN Reason: Nausea/Vomiting Sodium Chloride (Saline Flush) 10 ml FLUSH ASDIRECTED PRN PRN Reason: Keep Vein Open Sodium Chloride (Saline Flush) 2.5 ml FLUSH ASDIRECTED PRN PRN Reason: Keep Vein Open Thiamine HCl (Vitamin B-1) 100 mg IV DAILY [facility] Last Admin: 01/28/18 09:22 Dose: 100 mg Discontinued Medications Aspirin (Aspirin) 324 mg PO ONETIME ONE Stop: 01/27/18 04:52 Last Admin: 01/27/18 05:02 Dose: 324 mg Al Hydroxide/Mg Hydroxide 15 ml/ Metoclopramide HCl 5 mg/Lidocaine HCl 5 ml 0 ml PO ONETIME ONE Stop: 01/27/18 09:28 Last Admin: 01/27/18 10:19 Dose: 1 each Dextrose/Water (Dextrose 50% In Water) 50 ml IVPUSH STAT ONE Stop: 01/27/18 11:12 Last Admin: 01/27/18 11:17 Dose: 50 ml Sodium Chloride (Normal Saline) 1,000 mls @ 175 mls/hr IV STAT SIGIFREDO Last Infusion: 01/27/18 06:03 Dose: 999 mls/hr Insulin Human Regular 100 unit (/ Sodium Chloride) 100 mls @ 6 mls/hr IV TITRATE SIGIFREDO; Protocol Sodium Chloride (Normal Saline) 1,000 mls @ 175 mls/hr IV ASDIRECTED SIGIFREDO Last Admin: 01/27/18 18:29 Dose: 175 mls/hr Sodium Chloride (Normal Saline) 1,000 mls @ 999 mls/hr IV .Bolus ONE Stop: 01/27/18 10:29 Last Admin: 01/27/18 09:30 Dose: 999 mls/hr Insulin Aspart (Novolog) 0 unit SUBCUT TIDAC SIGIFREDO; Protocol Insulin Aspart (Novolog) 0 unit SUBCUT Q6H SIGIFREDO; Protocol Last Admin: 01/27/18 18:01 Dose: 1 unit Insulin Aspart (Novolog) 10 unit SUBCUT ONETIME ONE Stop: 01/28/18 07:02 Last Admin: 01/28/18 07:22 Dose: 10 unit Insulin Human Regular (Novolin R) 20 unit SUBCUT NOW STA; Protocol Stop: 01/27/18 06:15 Last Admin: 01/27/18 06:30 Dose: 20 unit Insulin Human Regular (Novolin R) 10 unit IVPUSH ONETIME ONE; Protocol Stop: 01/27/18 06:16 Last Admin: 01/27/18 06:30 Dose: 10 unit Morphine Sulfate (Morphine) 2 mg IVPUSH Q4H PRN PRN Reason: Pain (severe 7-10) Stop: 01/28/18 08:11 Last Admin: 01/28/18 04:31 Dose: 2 mg Morphine Sulfate (Morphine) 1 mg IVPUSH ONETIME ONE Stop: 01/28/18 09:07 Last Admin: 01/28/18 09:18 Dose: 1 mg
[2018-01-28] MEDS: cefTRIAXone 1 GM in Premix Bag 1 BAG IV SCH (12:11)
--- NOTE | 2018-01-30 14:10 | CT ---
EXAM DATE: 01/27/18 PATIENT'S AGE: 37 Patient: PAN ESPINOZA Facility: [place], [place] Site . Site : 1980 Study: CT Chest [id number]/9/2018 9:41:55 AM Ordering Physician: German Vargas Final Report: INDICATION: chest wall pain HISTORY: Chest wall pain. COMPARISON: None. TECHNIQUE: CT of the chest. No intravenous contrast. Coronal/sagittal reconstruction images. FINDINGS: Nonenlarged axillary lymph nodes. No pleural or pericardial effusion. Ascending thoracic aorta measures 3.2 cm in dimension. This is within normal limits. Borderline dilation of the main pulmonary artery at 30 mm. No pleural or pericardial effusion. The lung windows demonstrate no endobronchial mass. There is no bronchiectasis. There is minimal atelectasis at the left lung base. There is no suspicious pulmonary nodule. There is no acute airspace disease. There is no pneumothorax. Evaluation the upper abdomen demonstrates no adrenal mass. Included segments of the liver, spleen, and adrenal glands are within normal limits. No hydronephrosis. Multiple pancreatic parenchymal calcifications, compatible chronic pancreatitis. The bone windows demonstrate no lytic or blastic bone lesions. The alignment is preserved. On sagittal reconstruction images, the vertebral body heights and alignment are maintained. IMPRESSION: 1. No findings to explain chest wall pain. 2. There is no displaced rib fracture or chest wall hematoma. 3. The sternum appears intact on CT. 4. No thoracic lymphadenopathy or acute airspace disease. 5. Multiple pancreatic parenchymal calcifications, compatible with chronic pancreatitis. Dictated by Ermias Farr MD @ 01/28/2018 10:01:18 AM Please note that all CT scans at this facility use dose modulation, iterative reconstruction, and/or weight-based dosing when appropriate to reduce radiation dose to as low as reasonably achievable. Dictated by: Ermias Farr MD @ 01/28/2018 10:01:38 (Electronic Signature) Report Signed by Proxy. [facility]
== END 2018-01-28 14:45 | disposition home or self-care (01) ==
LOC: MW.ED 04:42 → MW.MS 06:20 → MW.OB 15:39 → MW.MS 16:02
PROVIDERS: ADMIT Internal Medicine; ATTEND Internal Medicine
DX: R07.89 Other chest pain (principal); M54.9 Dorsalgia, unspecified; E10.9 Type 1 diabetes mellitus without complications; I50.9 Heart failure, unspecified; Z79.2 Long term (current) use of antibiotics; Z79.4 Long term (current) use of insulin; Z79.899 Other long term (current) drug therapy
CPT/HCPCS: 36415; 36600; 71045; 71250; 80048; 80053; 80305; 81001; 82150; 82803; 82962; 83690; 84484; 85025; 85379; 85610; 87086; 93005; 96361; 96365; 96372; 96375; 96376; 99285; A9270; C9113; G0378; J0696; J1815; J2060; J2270; J3411; J7040; J7060; 96360; 99284